=== PATIENT | female | born 1940 | race Caucasian/White ===

== ENCOUNTER 2019-06-12 10:07 | Outpatient (CLI) | payer MEDICARE ==
[~2019-06-12 10:07] MED LIST: Iopamidol 370 76% 100 ML VIAL ONE
--- NOTE | 2019-06-12 13:35 | CT ---
CT ANGIO ABDOMEN AND PELVIS AND LOWER EXTREMITIES WITH INTRAVENOUS CONTRAST WITH 3D RECONSTRUCTIONS: HISTORY: Peripheral vascular disease. Claudication symptoms. FINDINGS: The lung bases show emphysematous change. The liver, spleen and pancreas regions appear unremarkable on this angiographic phase exam. The gallbladder is absent. The right and left adrenal glands and the right and left kidneys are normal in size. No significant p eriaortic or mesenteric or pelvic lymphadenopathy. Minimal diverticulosis of the colon is seen. The angiographic portion of the study shows a normal caliber aorta with some moderate atherosclerotic change. There is very mild narrowing of the origin of the celiac artery and a small calcified plaque at the origin of the superior mesenteric artery without significant narrowing. There is mild stenosi s of the origin of single renal arteries bilaterally. The right lower extremity runoff shows what appears to be a short stent in the right common iliac art eugenio. There is atherosclerotic disease but I believe there is also a stent. There is flow present. The re is a second stent at the level of the right external iliac artery, also with flow through the sten t. The right internal iliac artery is very small. The external iliac stent extends to the level of th e common femoral artery, which is very small. The profunda femoral and superficial femoral arteries a re patent without obvious stenosis of the SFA. The popliteal artery is small. There are anterior tibi al and peroneal branches seen but no posterior tibial artery. The dorsalis pedis is seen to form. On the left side there is also what appears to be a left common iliac stent. There is atherosclerotic change. There is flow through the area of the stent. There is some moderate narrowing at the level o f the takeoff of the external iliac artery and the left internal iliac artery is very small. Moderate narrowing of the external iliac artery is present and the left common femoral artery is small. The s uperficial femoral artery occludes at its origin. There are profunda femoral branches which re-consti tute the popliteal artery with a patent peroneal. The anterior tibial artery is seen to approximately mid calf. The posterior tibial artery is not visualized. IMPRESSION: 1. There appear to be bilateral common iliac stents, difficult to visualize due to plaque. I see flow through these areas of stent. There is also a right external iliac stent present with flow seen thro ugh the stent. There is two vessel runoff on the right with peroneal and anterior tibial branches see n. 2. On the left side there is mild to moderate narrowing of the left external iliac artery. The super ficial femoral artery occludes at its origin. There is reconstitution of the popliteal via collateral s and a faintly visualized anterior tibial artery occluding at approximately mid thigh with the peron eal branch extending to the ankle. POS: [facility]
== END 2019-06-12 10:08 | disposition home or self-care (01) ==
LOC: CT 10:07
PROVIDERS: ATTEND Internal Medicine Cardiovascular Disease
DX: I73.9 Peripheral vascular disease, unspecified (principal); I70.8 Atherosclerosis of other arteries
CPT/HCPCS: 75635; 82565; Q9967